=== PATIENT | female | born 1955 | race Caucasian/White ===

== ENCOUNTER 2017-04-17 06:07 | Day surgery (SDC) | payer OTHER ==
[~2017-04-17] VITALS: Ht 157.5 cm; Wt 73.2 kg
[2017-04-17] MEDS ORDERED: BENZOCAINE 20% 50 MCG/SPRAY 57 GM TP ONE (06:08)
[2017-04-17] MEDS ORDERED: LIDOCAINE HCL 4% 50 ML SOLUTION TP ONE (06:08)
[2017-04-17] MEDS ORDERED: ALBUTEROL SULFATE 2.5 MG/0.5 ML NEB SOLUTION NEB ONE (06:08)
[2017-04-17] MEDS ORDERED: LIDOCAINE HCL 2% 5 ML JELLY TP ONE (06:08)
[2017-04-17] MEDS ORDERED: SODIUM CHLORIDE 0.9% 1,000 ML IV ONE (07:00)
[2017-04-17] MEDS ORDERED: HYDR200T4 PO (07:10)
[2017-04-17] MEDS ORDERED: CALC-877 PO (07:10)
[2017-04-17] MEDS ORDERED: MIDAZOLAM HCL 2 MG/2 ML VIAL ONE (07:27)
[2017-04-17] MEDS ORDERED: FentaNYL CITRATE-PF 100 MCG/2 ML VIAL ONE (07:28)
[2017-04-17] MEDS ORDERED: MethylPREDNISolone SOD SUCC 125 MG/2 ML VIAL IVP ONE (09:00)
[2017-04-17] MEDS ORDERED: MethylPREDNISolone SOD SUCC 125 MG/2 ML VIAL ONE (09:19)
[2017-04-17] MEDS ORDERED: OXYGEN THERAPY IH SCH (20:00)
== END 2017-04-17 10:20 | disposition home or self-care (01) ==
LOC: SURGERY 06:07
PROVIDERS: ATTEND Internal Medicine Critical Care Medicine
DX: J38.4 Edema of larynx (principal); B37.0 Candidal stomatitis; G47.33 Obstructive sleep apnea (adult) (pediatric); K21.9 Gastro-esophageal reflux disease without esophagitis; M19.90 Unspecified osteoarthritis, unspecified site; J45.909 Unspecified asthma, uncomplicated; Z90.710 Acquired absence of both cervix and uterus; Z98.890 Other specified postprocedural states
CPT/HCPCS: 31623; 31624; 71010; 87015 ×2; 87070; 87101; 87205; 87220; 88108; 93005; J2250; J2930; J3010